=== PATIENT | male | born 1955 | race Caucasian/White ===

== ENCOUNTER 2024-10-10 02:55 | Inpatient (IN) | payer OTHER, SELFPAY ==
[2024-10-10] VITALS (23 sets, daily range): BP systolic 89–178; BP diastolic 58–97; BMI 26.2
--- NOTE | 2024-10-10 00:27 | ED.GENMED ---
History of Present Illness
General
Chief Complaint: Chest Pain
Source: patient and ambulance crew
Exam Limitations: none
Time Seen by Provider: 10/10/24 00:27
Nursing documentation reviewed up to this point in time: agreed with
History of Present Illness
History of Present Illness:
69-year-old male presents with substernal chest pain that radiates into his left jaw and his back. He states that the pain began approximate 1 hour prior to arrival while watching the fourth water of a football game. Patient denies any cardiac
history. His only medical problem is hypertension. He does take olmesartan. He states that he has seen cardiology in the past as 'preventative measures '. He does not smoke. He drinks approximately 3-4 beers per week. Denies any drug use. Is
but his ex- is his contact. He lives alone.
STEMI alert called at 11:59 PM.
Review of Systems
Review of Systems
Allergies reviewed?: Yes
Other source history: ambulance crew
All Other Systems: ROS reviewed and negative except as documented in HPI and ROS
Constitutional: Reports no symptoms
EENT: Reports no symptoms
Respiratory: Reports no symptoms
Cardiac: Reports chest pain and diaphoresis
ABD/GI: Reports no symptoms
: Reports no symptoms
Musculoskeletal: Reports no symptoms
Skin: Reports no symptoms
Neurological: Reports no symptoms
Endocrine: Reports no symptoms
Hematologic/Lymphatic: Reports no symptoms
Psychiatric: Reports no symptoms
Phy Exam
General Physical Exam
General Presentation: moderate distress
General Skin: warm and diaphoretic
General Habitus: normal
General Mental: alert
General Hydration: appears well hydrated
ENT Exam
ENT Exam: EOMI, pharynx normal, neck supple and normocephalic
Eye Exam
Eye Exam: PERRL, cornea clear and conjunctiva normal
Cardiovascular Exam
Cardiovascular Exam: regular rate/rhythm, no edema, no murmur and normal peripheral pulses
Pulmonary Exam
Pulmonary Exam: lungs clear, no respiratory distress, no rales, no crackles, no rhonchi, no stridor, no wheezing and no cough
Gastrointestinal Exam
Gastrointestinal Exam: normal bowel sounds, non tender, soft, no organomegaly, no pulsatile mass and non distended
Neurological Exam
Neurological Exam: alert, oriented x3, no motor deficits and speech normal
Musculoskeletal Exam
Musculoskeletal Exam: full ROM and no edema
Skin Exam
Skin Exam: normal color, warm/dry, no rash and no petechia
Psychiatric Exam
Psychiatric Exam: normal mood/affect
Scores
Heart Score for Chest Pain Patients
STEMI patient?: Yes
Course
Orders/Labs/Results
Orders:
Orders
10/10/24 00:15
Electrocardiogram (*1) Urgent
Reason for Study: Other
Other Reason for Exam: Respiratory Distress
Cardiac Monitoring- Treatment ONCE
EKG- Treatment ONCE
IV Insert/Care/Rem.- Treatment PRN
CR Chest Portable - 1 View Urgent
Comment:
Reason For Exam: respiratory distress
Reason Study Needs to be Portable: Patient Unstable
O2 Therapy [RESP] Urgent
Titrate/Wean O2 to maintain O2 sat greater than (%): 93
Special Instructions: TO MAINTAIN CONTINUOUS O2 SATS >/= 93%
Pulse Ox/cont/shift [RESP] Urgent
Quantity: 1
Special Instructions: continuous pulse ox
10/10/24 00:20
Complete Blood Count/With Diff Urgent
Comprehensive Metabolic Panel Urgent
NT-proBNP Urgent
Troponin I Urgent
10/10/24 00:33
PTT Urgent
Abnormal Lab Results
10/10/24
00:20
MCH 31.8 H pg
(27.0-31.0)
Abs Immat Gran (auto) 0.1 H 10^3/uL
(0-0.05)
Absolute Monos (auto) 0.8 H 10^3/uL
(0.1-0.6)
Immature Gran % 1.3 H %
(0-0.5)
Monocytes % 9.9 H %
(1.7-9.3)
Eosinophils % 8.7 H %
(0-6)
BUN 21 H mg/dl
(9-20)
Glucose 166 H mg/dl
(70-99)
10/10/24 00:20
10/10/24 00:20
*Critical Care Note
Total Time (30-74mins, 75-104mins- exclusive of procedures): 20
comment:
Critical care statement: A total of 20 minutes of critical care time was provided for this patient. This time is separate from time utilized to perform the aforementioned documented procedures. Aggregate critical care time includes only time
during which I was engaged in work directly related to the patient's care, as described above, whether at the bedside or elsewhere in the Emergency Department.
ED Attending Note
-
Portions of this chart may have been created with voice recognition software.� Occasional wrong word or��sound alike� substitutions may have occurred due to the inherent limitations of voice recognition software.
Discharge Plan
Departure
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
Date of Disposition: 10/10/24
Time of Disposition: 00:28
Admit to: slab off mill tender
Presentation/result/management discussed w/ accepting MD/DO: Dr. Mendosa
Discharge Problem:
ST elevation (STEMI) myocardial infarction, Chest pain
Discharge Date and Time
Print Language: FRENCH
[2024-10-10 00:34] LABS: % Basophils 1.1 % (0-2); % Eosinophils 8.7 % (0-6); % Immature Granulocytes 1.3 % (0-0.5); % Lymphocytes 24.4 % (20.5-51.1); % Monocytes 9.9 % (1.7-9.3); % Neutrophils 54.6 % (42.2-75.2); Absolute Basophils 0.1 10^3/uL (0-0.2); Absolute Eosinophils 0.7 10^3/uL (0-0.7); Absolute Immature Granulocytes 0.1 10^3/uL (0-0.05); Absolute Lymphocytes 1.8 10^3/uL (1.2-3.4); Absolute Monocytes 0.8 10^3/uL (0.1-0.6); Absolute Neutrophils 4.1 10^3/uL (1.4-6.5); Hematocrit 47.1 % (39.0-52.0); Hemoglobin 16.2 g/dL (13.0-18.0); Mean Corp Hgb Conc. 34.4 g/dL (33.0-37.0); Mean Corpuscular Hgb 31.8 pg (27.0-31.0); Mean Corpuscular Volume 92.4 fL (80.0-94.0); Mean Platelet Volume 10.4 fL (7.4-10.4); Nucleated Red Blood Cells % 0 % (-); Platelet Count 172 10^3/uL (130-400); Red Cell Dist. Width 12.3 % (11.5-14.5); White Blood Cell Count 7.6 10^3/uL (4.8-10.8)
[2024-10-10 00:44] LABS: ALT (SGPT) 22 U/L (0-50); AST (SGOT) 23 U/L (17-59); Alkaline Phosphatase 64 U/L (38-126); Blood Urea Nitrogen 21 mg/dl (9-20); Calcium 9.1 mg/dl (8.4-10.2); Carbon Dioxide 25 mmol/L (22-30); Chloride 107 mmol/L (98-107); Estimated Creatinine Clearance 80 ml/min; Glucose 166 mg/dl (70-99); Sodium 143 mmol/L (135-145); Total Bilirubin 0.3 mg/dl (0.2-1.3); Total Protein 6.5 g/dl (6.3-8.2); eGFR > 60.00
[2024-10-10 00:51] LABS: APTT 25.2 Sec (23.4-35.0)
[2024-10-10 00:52] LABS: ACT-LR - POC 187 Seconds (116-155)
[2024-10-10 00:54] LABS: NT-proBNP 29.4 pg/ml; Troponin I < 0.012 ng/ml
[2024-10-10 01:03] LABS: ACT-LR - POC 253 Seconds (116-155)
[2024-10-10 01:14] LABS: ACT-LR - POC 253 Seconds (116-155)
[2024-10-10 01:25] LABS: ACT-LR - POC 347 Seconds (116-155)
[2024-10-10 01:47] LABS: ACT-LR - POC 316 Seconds (116-155)
[2024-10-10 02:44] LABS: ACT-LR - POC 274 Seconds (116-155)
--- NOTE | 2024-10-10 02:53 | ITS.CL.CATH ---
Stenocaptioner - Catheterization
Cardiac Catheterization
Procedure Report:
LEFT HEART CATH AND CORONARY INTERVENTION
Date of Procedure: October 10, 2024
Referring: [facility] Emergency Department
PROCEDURES:
1. Left heart catheterization with coronary and single-plane left ventriculography
2. Successful stenting of the mid right coronary artery with a 4.5 x 15 mm Spearman stent that was implanted at 14 allyssa and postdilated to 16 allyssa with a 5.5 mm Trek NC balloon
3. Successful stenting of the distal RCA into the PDA with a 2.75 x 30 mm Spearman stent that was postdilated with a 3.5 mm noncompliant balloon at 6 allyssa distally 8 and 12 allyssa within the midportion of the stent and 20 and 22 allyssa in the proximal portion
of the stent
4. Balloon angioplasty of posterolateral branch with a 2.25 x 10 mm balloon
INDICATION: This is a 69-year-old gentleman with no prior cardiac history who reported the sudden onset of substernal chest pressure approximately 1-2 hours prior to presentation. His symptoms worsened and 911 was called. His prehospital
electrocardiogram was suggestive of a possible evolving inferior wall myocardial infarction and a STEMI alert was activated. Upon arrival to [facility] repeat ECG was diagnostic for an acute inferior wall myocardial infarction and he was
referred for emergent coronary angiography.
ACCESS: Right radial artery, 6 Korean sheath
HEMODYNAMICS (mmHg):
AO (s/d, m) : 150/91, 116
LV (s/d) : 157/15
LVEDP : 26
CORONARY FINDINGS
Dominance: Right
LEFT MAIN: 40% ostial stenosis
LEFT ANTERIOR DESCENDING: The LAD arises normally from the left main and runs in the anterior interventricular groove. The first diagonal branch arises from the proximal one third of the LAD and has a 70% proximal stenosis. There is a complex
bifurcation mid LAD stenosis involving a medium caliber second diagonal branch. The mid to distal LAD beyond the second diagonal branch has diffuse luminal irregularities but no high-grade focal obstructive stenosis
CIRCUMFLEX: The circumflex is a medium caliber nondominant vessel giving rise to a small OM1. The mid circumflex has a 40% stenosis. OM 2 has a long 60-70% proximal stenosis
RIGHT CORONARY: The right coronary artery is a large-caliber artery with an 80% stenosis in a very ectatic segment of the mid RCA. The PDA is patent. The posterolateral branches fill to fill via [id number] collaterals. The origin was not
well-visualized.
VENTRICULOGRAPHY: Left ventriculography was performed in an IRVING projection. The digital single-plane left ventricular ejection fraction is estimated at 45-50% with posterior basal and diaphragmatic inferior hypokinesis noted
ANGIOPLASTY PROCEDURE DETAIL: Upon review of the diagnostic catheterization films the decision was made to proceed with percutaneous revascularization of the mid and possibly distal RCA. Intravenous heparin was administered and the ACT was
monitored throughout the procedure. The origin of the RCA was cannulated with a 6 Korean hockey-stick guide catheter and a long BMW guidewire was advanced across the stenosis in the mid RCA and into the PDA with a mild degree of difficulty. I
initially attempted to primarily stent the RCA using a 4.5 x 15 mm Angel stent. However, the Angel stent would not cross and was removed from the vessel. Predilation was then performed using a 3.0 x 15 mm Euphora balloon. Predilation allowed for
placement of the 4.5 x 15 mm Angel stent which was implanted at nominal pressures then postdilated with a 5.5 mm noncompliant balloon. After post dilating the stent the patient experienced a significant increase in chest discomfort with associated
ECG changes, bradycardia and nausea. He became agitated and was unsure if he could remain still for the remainder of the procedure. Intravenous fluids were administered and 0.5 mg of atropine was given. Phenylephrine was utilized to treat
hypotension and he was transiently started on an norepinephrine infusion.
Angiography revealed no reflow into the distal RCA. A posterolateral branch was now noted to be occluded proximally. A GuideLiner was advanced into the proximal RCA and a 2.75 x 30 mm Angel stent was positioned from the distal RCA to the mid PDA
where it was implanted at nominal pressures. The stent was postdilated with a 3.5 mm noncompliant balloon. The posterolateral branch was now noted to fill and the guide liner was removed. A second BMW guidewire was advanced across the proximal
stenotic segment through the stent strut, however, balloon catheters would not cross. I remove the wire from the posterolateral branch and reposition/recrossed the stent on multiple occasions. Ultimately, we are able to dilate the proximal segment
with a 2.0 x [address] balloon. The ST elevation on the electrocardiogram had largely resolved and the patient was chest pain-free. Given the advanced nature of his coronary disease in the LAD, diagonal, and circumflex system the decision was
made to terminate further interventional attempts on the posterolateral branch.
Double bolus Integrilin was administered following stenting of the mid LAD and development of transient no reflow. Ultimately, the Integrilin bolus was followed by continuous infusion. This was a very long complex interventional procedure
exceeding 3000 mGy and required multiple wires, stents, balloon dilation catheters
RADIATION SUMMARY: Fluoro Time (min): 35.5, Dose (mGy): 3360, DAP (Gy.cm2) : 229
CONCLUSIONS
1. Successful stenting of the mid and distal RCA. The mid RCA was stented with a 4.5 x 15 mm Angel stent that was postdilated with a 5.5 mm noncompliant balloon. The distal RCA from the crux to the PDA was stented with a 2.75 x 30 mm Spearman stent
which was postdilated between 6 and 8 allyssa distally with a 3.5 mm noncompliant balloon and successfully higher pressures in the mid and proximal portion of the stent. The proximal stented segment was postdilated between 20 and 22 allyssa.
2. Balloon angioplasty of large posterolateral branch with a 2.0 x 10 mm balloon
RECOMMENDATIONS
1. Angiograms will be reviewed with CT surgery to consider surgical revascularization of LAD, first and second diagonal branches, OM 2, and posterolateral branch from the RCA
2. Continue Integrilin infusion until this bag is completed
3. Aspirin 81 mg daily and ticagrelor 90 mg twice daily
4. High intensity statin therapy
5. Continue to trend serial troponin. Will check hemoglobin A1c and fasting lipids
6. Check echocardiogram
Copy to: Dr. Nico Mendosa
--- NOTE | 2024-10-10 04:12 | PTCARENOTE ---
Pt rec'd from ccl in bed awake,alert with no c/o pain. right radial band in place. fingers cool and dusky with weak pulse. warm blanket applied with hand pinking up after a few mins. adm hx taken and recorded. IV Integrilin infusing via lac.
[2024-10-10 06:46] LABS: HDL Cholesterol 38 mg/dl; LDL Cholesterol, Calculated 129 mg/dl; Total Cholesterol 182 mg/dl (50-199); Triglyceride 79 mg/dl (10-149); Very Low Density Lipoprotein 15 mg/dl (0-30)
[2024-10-10 09:00] LABS: Hepatitis C Antibody Negative (Negative)
[2024-10-10 09:35] LABS: ACT-LR - POC > 397 Seconds (116-155)
--- NOTE | 2024-10-10 09:42 | CONSULT.CT ---
Consultation
-
Date/Time Consultation Requested: 10/10/24
Date/Time Consultation Performed: 10/10/24 0945
Requesting Provider: Dr. Nico Mendosa MD.
Performing Provider: Balbina Oden PA-C on behalf of Dr. Jovani Carroll MD.
Reason for Consultation: IW STEMI, s/p HELIO of RCA, MV CAD eval for CABG
Patient History
Physicians
Family Physician: Dr. Gudelia Hoyos DO
Outpatient Finishing Lab Technician: Jame Perez MD. [facility]
Inpatient Finishing Lab Technician: KOBY, Dr. Nico Mendosa MD.
History of Present Illness
Patient is an extremely pleasant 69-year-old male with PMH of HTN and YONG s/p repair of deviated septum, who was experiencing acute substernal chest pain on 10/10/24.
Patient described an episode of chest pain, radiation to the left jaw and back with associated diaphoresis, nausea, and vomiting. Patient lives alone, and due to the progression of symptoms he sought medical attention and called EMS.
Patient was taken to [facility]'s emergency department on the date described above. EKG upon arrival revealed acute WA/STEMI. SR 1 AVB (66), incomplete RBBB/LAFB. Further workup revealed troponin I of 30.10 and the patient was ruled in for
a STEMI. Cardiology was notified and the patient was taken urgently to the cardiac catheterization lab and underwent a successful stenting of the mid to distal RCA with HELIO.
Patient was also found to have multivessel CAD. Please see summary of catheterization listed below. CT surgery was consulted for coronary artery revascularization.
Cardiac catheterization 10/10/24: Navya
EF: 45-50%
LM: 40% ostial
LAD: complex mid LAD stenosis
D1: 70% prox
LCx: 40 % mid
OM2: 60-70% prox
RCA: 80% mid. PDA is patent. PLB's fill via L -> R collaterals
Interventions: Successful stenting of mid-distal RCA
EK/15
Acute WA/STEMI
SR 1AVB (66)
Incomplete RBBB/LAFB
Past Medical History
Past Medical History: Other
HTN
YONG s/p repair of deviated septum
Past Surgical History
Past Surgical History: Other
ORIF L clavicle
L hand surgery
R carpal tunnel release
L knee cyst removal
Deviated septum repair
Dental History
Noncontributory
Family History
Mother: Still Living (93, h/o PPM )
Father: at Age (54) and Cause of (History of CAD, complications with lung cancer)
Family Medical History: CAD
Social History
Alcohol: Occasional (2-7 drinks/wk )
Drug: None
Tobacco: Non-Smoker
Personal:
Living: Alone
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
Allergies
Allergy/AdvReac Type Severity Reaction Status Date / Time
No Known Allergies Allergy Verified 10/10/24 03:29
Review of Systems
-
History Source: Patient
General: Reports Fatigue; Denies Fever, Weight Gain, Weight Loss or Night Sweats
HEENT: Denies Visual Changes, Dysphagia, Hoarseness or Sore Throat
Respiratory: Reports Other (h/o YONG ); Denies SOB, ALICEA, Cough or Asthma
Cardiac: Reports Chest Pain, Nausea, Vomiting and Diaphoresis; Denies Edema
Abdomen/GI: Reports Nausea and Vomiting; Denies Abdominal Pain, Reflux, Indigestion, BRBPR or Black Stools
: Denies Dysuria, Frequency, Incontinence, Urgency or Hematuria
Musculoskeletal: Denies Myalgias, Arthralgias, Joint Pain or Edema
Skin: Denies Itching or Rash
Neurological: Denies CVA, TIA, Headaches, Syncope, Numbness or Seizures
Vascular: Denies Claudication or PVD
Physical Exam
Vital Signs
Temp 98.5 F 10/10/24 07:47
Temp route: Oral 10/10/24 07:47
Pulse 68 10/10/24 09:15
Rhythm: Normal sinus rhythm 10/10/24 03:30
With- Bundle Branch Block Confi 10/10/24 03:30
Resp Rate 20 10/10/24 07:47
Blood pressure 101/71 10/10/24 09:00
Blood pressure extremity used: Right upper arm 10/10/24 07:47
Position: Lying 10/10/24 07:47
MAP (cuff-Jose Monitor) 82 10/10/24 09:00
SaO2 94 10/10/24 07:47
Oxygen Mode of Delivery Room air 10/10/24 07:47
Can the patient verbally communicate their pain? Yes 10/10/24 03:08
Pain scale ratin 10/10/24 03:08
Actual Weight 177 lb 0.499 oz 10/10/24 00:22
Body Mass Index (BMI) 0.0 10/10/24 03:34
Labs
10/10/24 00:20
APTT 25.2 Sec (23.4-35.0) 10/10/24 00:33
Troponin I Cancelled 10/10/24 15:00
Yzj-W-Ggrfzdprdfs Pept 29.4 pg/ml 10/10/24 00:20
Diagnostic Studies
Cardiac catheterization 10/10/24: Navya
EF: 45-50%
LM: 40% ostial
LAD: complex mid LAD stenosis
D1: 70% prox
LCx: 40 % mid
OM2: 60-70% prox
RCA: 80% mid. PDA is patent. PLB's fill via L -> R collaterals
Interventions: Successful stenting of mid-distal RCA
EK/15
Acute WA/STEMI
SR 1AVB (66)
Incomplete RBBB/LAFB
Exam
General: Well Developed, Well Nourished, No Apparent Distress and Comfortable; Negative Respiratory Distress
HEENT: Normocephalic, Moist Mucous Membranes, Atraumatic, PERRLA and EOMI
Neck: Trachea Midline; Negative Carotid Bruit
Respiratory: Clear; Negative Wheezes, Crackles, Rhonchi or Accessory Muscle Use
Cardiac: S1/S2 and Regular Rhythm; Negative Murmur, Rub or Gallop
GI: Soft, Non Tender, Non Distended and Normal Bowel Sounds (Slightly diminished)
Rectal: Deferred by Provider
Skin: Warm and Dry; Negative Rash
Neuro: AO x 3, No Motor Deficits and CN X-XII Intact
Extremities: Negative Upper Level Edema, Lower Level Edema, Upper Level Cyanosis, Lower Level Cyanosis, Upper Level Clubbing or Lower Level Clubbing
Psych: Calm
Assessment / Plan
-
Assessment:
69-year-old male with PMH of:
HTN
YONG s/p repair of deviated septum
Now with:
Acute WA/STEMI
s/p successful stenting of RCA w/ HELIO
LVEF 45-50%
MV CAD
Plan:
Patient's case was discussed with Dr. Jovani Carroll MD.
Patient will follow-up in the office as an outpatient with Dr. Carroll for consultation.
At that point surgical date will be determined. Patient was given an appointment for 10/28/2024 at 8:30 AM.
We will obtain preoperative testing prior to the patient being discharged.
It was requested to evaluate his left radial artery with complete palmar arch ultrasound.
Patient will likely require Brilinta washout prior to surgical date.
--- NOTE | 2024-10-10 09:53 | W.PN.CARDCBS ---
Addendum entered and electronically signed by Rafael Amaya MD 10/10/24 11:13:
I saw and examined the patient.
The CARPENTER APPRENTICE or PA's note was reviewed and I agree with the note.
Comment: General: Well developed, well nourished in NAD.
Neck: Supple, no JVD, HJR, carotids +2 B/L, no bruits bilaterally.
Heart: Non displaced PMI, RRR, no murmurs, No S3, S4, no rubs.
Lungs: scattered rhonchi
Abdomen: Normal bowel sounds, soft, non-tender, non-distended.
Extremities: No clubbing, cyanosis or edema bilaterally.
Neuro: Grossly nonfocal, awake, alert and oriented x3.
Doing well at current time. Will check echocardiogram. Await CT surgery input. Likely eventual outpatient CABG. Will trend troponins.
Original Note:
Today's Communication / Plan
-
CT surgical work up underway
integrilin stopped
continue asa, brilinta, lipitor
low dose toprol with hold parameters
echo pending
trend trop
Impression / Plan
-
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
Assessment:
Presentation with chest discomfort
STEMI resulting in RCA PCI x2 and balloon angioplasty of large PLB 10/10/24
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
HTN
HLD
ECHO 10/10/24: pending
Plan:
-Patient presented with chest discomfort. EKG consistent with inferior STEMI resulting in urgent catheterization with RCA PCI x 2 and balloon angioplasty of large posterior lateral branch 10/10/2024. He was noted by cath to have residual
multivessel CAD
-CT surgery following. CABG work up underway
-Troponin this morning up to 30, trend to peak
-Chest pain-free
-Sinus rhythm on telemetry with several brief runs of NSVT
-K/mag pending
-Blood pressures have been marginal. Will add low-dose Toprol with hold parameters
-Integrilin now stopped
-Continue aspirin, Brilinta. Case management looking into cost to patient
-LDL 127. Lipitor 80 mg every afternoon new this admission
-Echo pending
-LVEDP by cath was 26. monitor volume status
-Cardiac rehab
-Ambulate
-Right wrist site clean dry and intact
-For possible discharge to home in a.m.
-Will arrange outpatient cardiac follow-up
Progress Note - Calender Roll Operator
Subjective
Date of Service: October 10, 2024
Denies chest pain, shortness of breath, palpitations overnight
Objective
Labs:
10/10/24 00:20
Labs
Hgb 16.2 g/dL (13.0-18.0) 10/10/24 00:20
Hct 47.1 % (39.0-52.0) 10/10/24 00:20
Plt Count 172 10^3/uL (130-400) 10/10/24 00:20
APTT 25.2 Sec (23.4-35.0) 10/10/24 00:33
Sodium 143 mmol/L (135-145) 10/10/24 00:20
Potassium 4.0 mmol/L (3.5-5.1) 10/10/24 00:20
BUN 21 mg/dl (9-20) H 10/10/24 00:20
Creatinine 0.9 mg/dL (0.7-1.3) 10/10/24 00:20
Glucose 166 mg/dl (70-99) H 10/10/24 00:20
Troponins
10/10/24 10/10/24 10/10/24
00:20 03:00 06:07
Troponin I < 0.012 Cancelled 30.100 H* D
10/10/24 10/10/24
09:00 15:00
Troponin I Cancelled Cancelled
Vital Signs and I&O:
Vital Signs
Temp Pulse Resp BP Pulse Ox
98.5 F 68 20 101/71 94
10/10/24 07:47 10/10/24 09:15 10/10/24 07:47 10/10/24 09:00 10/10/24 07:47
Vital Signs
Temp Pulse Resp BP Pulse Ox
98.5 F 68 20 10171 94
10/10/24 07:47 10/10/24 09:15 10/10/24 07:47 10/10/24 09:00 10/10/24 07:47
Intake & Output
10/08/24 10/09/24 10/10/24 10/11/24
07:59 07:59 07:59 07:59
Intake Total 52 / 52
Output Total 250 / 250
Balance -198 / -198
Physical Exam
Physical Exam
GEN: No distress, awake, alert, oriented x3
HEENT: supple, anicteric, mmm, eomi
LUNGS: CTA B/L, no wheezes/rales
CV: Reg, S1/S2, no murmur
ABD: soft, BS+, NT/ND
EXT: No cyanosis, clubbing, edema
NEURO: Gross non-focal
SKIN: Warm, pink, dry. No rash. R wrist site c/d/i
[2024-10-10] MEDS: PROTONIX 40 MG PO (10:04)
[2024-10-10] MEDS: BRILINTA 90 MG PO ×2 (10:05→19:44)
[2024-10-10] MEDS: LOW STRENGTH ASPIRIN 81 MG PO (10:05)
[2024-10-10 10:07] LABS: Glycohemoglobin (HgbA1c) 5.5 % (4.0-5.6)
--- NOTE | 2024-10-10 11:00 | PTCARENOTE ---
pt continues to be sr on the monitor, hr in the 70, vss. pt offers no complaints at this time. right radial band off, cdi. pt educated on restrictions and pt verbalized understanding. pt also educated on plan of care w/ testing and verbalized
understanding. pt ambulating in room and tolerating well. call leonard within reach.
[2024-10-10 12:38] LABS: INR 0.96; PT 13.1 Sec (11.4-14.6)
[2024-10-10 12:43] LABS: Blood Urea Nitrogen 18 mg/dl (9-20); Calcium 9.4 mg/dl (8.4-10.2); Carbon Dioxide 28 mmol/L (22-30); Chloride 105 mmol/L (98-107); Estimated Creatinine Clearance 72 ml/min; Glucose 100 mg/dl (70-99); Magnesium 2.1 mg/dl (1.6-2.3); Potassium 4.8 mmol/L (3.5-5.1); Sodium 139 mmol/L (135-145); eGFR > 60.00
[2024-10-10] MEDS: TOPROL XL PO (15:00)
--- NOTE | 2024-10-10 15:00 | PTCARENOTE ---
notified ranjit Altamirano of pt being in sb and bp of 101/71, help metoprolol per order.
--- NOTE | 2024-10-10 15:13 | CM ---
Chart reviewed. Patient is independent of ADLS, lives alone his children visit 50% of the time, 2 STH, 1 MARIAM, 0 DME. Plan is for the patient to return home. CM to follow
--- NOTE | 2024-10-10 15:18 | CM ---
Pricing on Brilinta 90mg BID is covered through the patients [employer] [facility], [place] [id number], at $11.10. They do have it in stock at his [facility]
[2024-10-10] MEDS: LIPITOR 80 MG PO (17:46)
[2024-10-10] MEDS: LOVENOX 40 MG SC (17:46)
[2024-10-10] MEDS: FLUSH (NSS) 1 FLUSH IV (19:45)
--- NOTE | 2024-10-10 22:16 | PTCARENOTE ---
Received patient at change of shift. Patient awake, alert, and oriented sitting in bed. Right radial site clean, dry, and intact. Little ecchymosis, no hematoma or swelling. No c/o pain. BP 105/73, Sinus/Roddy w/ BBB 50s-60s, 96% on room air.
Discussed plan of care. Patient verbalized understanding. Call leonard within reach.
[2024-10-11 05:03] VITALS: BP 96/72
[2024-10-11 05:48] LABS: Hematocrit 43.9 % (39.0-52.0); Mean Corp Hgb Conc. 34.2 g/dL (33.0-37.0); Mean Corpuscular Hgb 31.4 pg (27.0-31.0); Mean Platelet Volume 10.5 fL (7.4-10.4); Platelet Count 150 10^3/uL (130-400); Red Blood Cell Count 4.77 10^6/uL (4.70-6.10); Red Cell Dist. Width 12.6 % (11.5-14.5); White Blood Cell Count 7.5 10^3/uL (4.8-10.8)
[2024-10-11 06:02] LABS: Blood Urea Nitrogen 21 mg/dl (9-20); Carbon Dioxide 23 mmol/L (22-30); Chloride 107 mmol/L (98-107); Estimated Creatinine Clearance 72 ml/min; Glucose 102 mg/dl (70-99); Potassium 3.9 mmol/L (3.5-5.1); Sodium 138 mmol/L (135-145); eGFR > 60.00
--- NOTE | 2024-10-11 07:31 | W.PN.CARDCBS ---
Addendum entered and electronically signed by Elaine Murica PA-C 10/11/24 10:26:
[id number]
Addendum entered and electronically signed by Rafael Amaya MD 10/11/24 09:52:
I saw and examined the patient.
The SNELLER HAND or PA's note was reviewed and I agree with the note.
Comment: General: Well developed, well nourished in NAD.
Neck: Supple, no JVD, HJR, carotids +2 B/L, no bruits bilaterally.
Heart: Non displaced PMI, RRR, no murmurs, No S3, S4, no rubs.
Lungs: Clear to auscultation bilaterally, no wheeze, rhonchi, rubs bilaterally,
normal expiratory phase.
Extremities: No clubbing, cyanosis or edema bilaterally.
Neuro: Grossly nonfocal, awake, alert and oriented x3.
Stable cardiology status for discharge. Outpatient CT surgery evaluation has been scheduled. Continue aspirin and Brilinta.
Original Note:
Today's Communication / Plan
-
feeling well overnight
continue asa, brilinta, PPI, lipitor
attempt to continue toprol 12.5mg daily
CT surgical studies completed
likely for DC to home later today
OP cardiac and CT surgical follow up
Impression / Plan
-
Primary Piping Designer: none
Assessment:
Presentation with chest discomfort
STEMI resulting in RCA PCI x2 and balloon angioplasty of large PLB 10/10/24
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
HTN
HLD
ECHO 10/10/24: EF 60-65%, mild cLVH, mild AI
Plan:
-Patient presented with chest discomfort. EKG consistent with inferior STEMI resulting in urgent catheterization with RCA PCI x 2 and balloon angioplasty of large posterior lateral branch 10/10/2024. He was noted by cath to have residual
multivessel CAD
-remains CP free overnight
-CT surgery work up noted
-trop peaked at 44
-in SR on review of tele overnight with several brief runs of NSVT, appears to be improving in last 24 hours
-will attempt toprol 12.5mg daily
-Continue aspirin, Brilinta.
-LDL 127. Lipitor 80 mg every afternoon new this admission
-Echo with results as above, reviewed with patient 10/11
-LVEDP by cath was 26. monitor volume status, no evidence of acute CHF
-Cardiac rehab
-Right wrist site clean dry and intact
-likely for DC to home later today
-cardiac rehab
-outpatient cardiac and CT surgery follow-up arranged
-total DC time >30 minutes
Progress Note - Piping Designer
Subjective
Date of Service: October 11, 2024
no CP, SOB, palpitations, dizziness overnight
Objective
Labs:
10/11/24 05:09
10/11/24 05:09
Labs
Hgb 15.0 g/dL (13.0-18.0) 10/11/24 05:09
Hct 43.9 % (39.0-52.0) 10/11/24 05:09
Plt Count 150 10^3/uL (130-400) 10/11/24 05:09
PT 13.1 Sec (11.4-14.6) 10/10/24 12:18
INR 0.96 10/10/24 12:18
APTT 25.2 Sec (23.4-35.0) 10/10/24 00:33
Sodium 138 mmol/L (135-145) 10/11/24 05:09
Potassium 3.9 mmol/L (3.5-5.1) 10/11/24 05:09
BUN 21 mg/dl (9-20) H 10/11/24 05:09
Creatinine 1.0 mg/dL (0.7-1.3) 10/11/24 05:09
Glucose 102 mg/dl (70-99) H 10/11/24 05:09
Troponins
10/10/24 10/10/24 10/10/24
00:20 03:00 06:07
Troponin I < 0.012 Cancelled 30.100 H* D
10/10/24 10/10/24 10/10/24
09:00 12:18 15:00
Troponin I Cancelled 44.300 H* D Cancelled
10/10/24
17:39
Troponin I 29.800 H* D
Vital Signs and I&O:
Vital Signs
Temp Pulse Resp BP Pulse Ox
98.1 F 71 16 9672 96
10/11/24 05:15 10/11/24 05:03 10/11/24 05:15 10/11/24 05:03 10/11/24 05:15
Vital Signs
Temp Pulse Resp BP Pulse Ox
98.1 F 71 16 96
10/11/24 05:15 10/11/24 05:03 10/11/24 05:15 10/11/24 05:03 10/11/24 05:15
Intake & Output
10/08/24 10/09/24 10/10/24 10/11/24
07:59 07:59 07:59 07:59
Intake Total 532 / 532
Output Total 450 / 450
Balance 82 / 82
Physical Exam
Physical Exam
GEN: No distress, awake, alert, oriented x3
HEENT: supple, anicteric, mmm, eomi
LUNGS: CTA B/L, no wheezes/rales
CV: Reg, S1/S2, no murmur
ABD: soft, BS+, NT/ND
EXT: No cyanosis, clubbing, edema
NEURO: Gross non-focal
SKIN: Warm, pink, dry. No rash. R wrist site c/d/i
--- NOTE | 2024-10-11 08:19 | W.DS.TRANS ---
DC Summary - Compliance Officer
-
Discharge Instructions:
Discharge Diagnosis/Procedures STEMI, Angioplasty with stent to RCA, residual
coronary disease
Diet Low Cholesterol
Activity No strenuous activity
Driving Restrictions No driving for 24 hours
Bathing Restrictions OK to Shower
Other Services Cardiac Rehab
Instructions:
Stand-Alone Forms: DC Instructions- Cath/EP Lab
Changes to Home Medications: Yes
Discharge Medications:
DC Medications w/original date entered in [facility]
aspirin 81 mg chewable tablet 81 mg PO DAILY #30 tabs 10/10/24
atorvastatin 80 mg tablet 80 mg PO QPM #30 tabs 10/10/24
coenzyme [id number] 100 mg-100 unit capsule 100 cap PO 1XD 10/10/24
metoprolol succinate 25 mg tablet,extended release 24 hr 12.5 mg (1/2 x 25 mg) PO DAILY #30 tabs 10/10/24
pantoprazole 40 mg tablet,delayed release 40 mg PO DAILY #30 tabs 10/10/24
ticagrelor 90 mg tablet (Brilinta) 90 mg PO BID #60 tabs 10/10/24
Home Medication Changes
losartan stopped
asa, lipitor, brilinta, toprol, protonix are new
Pending Results: No
[2024-10-11 08:22] VITALS: BP 113/83
[2024-10-11] MEDS: LOW STRENGTH ASPIRIN 81 MG PO (08:24)
[2024-10-11] MEDS: TOPROL XL 12.5 MG PO (08:24)
[2024-10-11] MEDS: PROTONIX 40 MG PO (08:24)
[2024-10-11] MEDS: BRILINTA 90 MG PO (08:26)
[2024-10-11 11:05] VITALS: BP 106/73
[2024-10-11] MEDS: FLUAD (65 yr+) 2024-2025 FORMULA 0.5 ML IM (14:49)
== END 2024-10-11 16:20 | disposition home or self-care (01) | DRG 322 ==
LOC: IVU 02:55
PROVIDERS: Physician Assistant; Physician Assistant Medical; ADMITTING PHYSICIAN Internal Medicine Interventional Cardiology; CONSULT PHYSICIAN Thoracic Surgery (Cardiothoracic Vascular Surgery); EMERGENCY PHYSICIAN Student in an Organized Health Care Education/Training Program
PROC: 027035Z Dilation of Coronary Artery, One Artery with Two Drug-eluting Intraluminal Devices, Percutaneous Approach (ICD-10-PCS; 2024-10-10)
PROC: 4A023N7 Measurement of Cardiac Sampling and Pressure, Left Heart, Percutaneous Approach (ICD-10-PCS; 2024-10-10)
PROC: B2111ZZ Fluoroscopy of Multiple Coronary Arteries using Low Osmolar Contrast (ICD-10-PCS; 2024-10-10)
PROC: B2151ZZ Fluoroscopy of Left Heart using Low Osmolar Contrast (ICD-10-PCS; 2024-10-10)
DX: I21.19 ST elevation (STEMI) myocardial infarction involving other coronary artery of inferior wall (principal); I47.20 Ventricular tachycardia, unspecified; I25.10 Atherosclerotic heart disease of native coronary artery without angina pectoris; I10 Essential (primary) hypertension; E78.5 Hyperlipidemia, unspecified; Z79.82 Long term (current) use of aspirin
CPT/HCPCS: 71045; 71250; 80048; 80053; 80061; 83036; 83735; 83880; 84484; 85025; 85027; 85347; 85610; 85730; 86803; 90662; 93005; 93306; 93458; 93880; 93923; 93931; 99285; C1725; C1769; C1874; C1887; C1894; C9601; C9606; G0008; J0153; J1327; Q9967

== ENCOUNTER → 2024-12-04 08:20 | Outpatient (REF) | payer OTHER, SELFPAY ==
[2024-12-04 08:24] VITALS: BMI 26.1
[2024-12-04 09:01] LABS: % Basophils 0.8 % (0-2); % Eosinophils 10.5 % (0-6); % Immature Granulocytes 0.2 % (0-0.5); % Lymphocytes 24.9 % (20.5-51.1); % Monocytes 9.1 % (1.7-9.3); % Neutrophils 54.5 % (42.2-75.2); Absolute Eosinophils 0.5 10^3/uL (0-0.7); Absolute Lymphocytes 1.3 10^3/uL (1.2-3.4); Absolute Monocytes 0.5 10^3/uL (0.1-0.6); Absolute Neutrophils 2.8 10^3/uL (1.4-6.5); Hematocrit 48.7 % (39.0-52.0); Hemoglobin 16.7 g/dL (13.0-18.0); Mean Corp Hgb Conc. 34.3 g/dL (33.0-37.0); Mean Corpuscular Hgb 31.3 pg (27.0-31.0); Mean Corpuscular Volume 91.2 fL (80.0-94.0); Mean Platelet Volume 10.2 fL (7.4-10.4); Nucleated Red Blood Cells % 0 % (-); Platelet Count 180 10^3/uL (130-400); Red Blood Cell Count 5.34 10^6/uL (4.70-6.10); Red Cell Dist. Width 13.1 % (11.5-14.5); White Blood Cell Count 5.1 10^3/uL (4.8-10.8)
[2024-12-04 09:04] LABS: Urine Albumin Negative (Neg - Trace); Urine Bilirubin Negative (Negative); Urine Character Clear (Clear); Urine Color Yellow; Urine Glucose Negative (Negative); Urine Ketone Negative (Negative); Urine Leukocyte Negative (Negative); Urine Nitrite Negative (Negative); Urine Occult Blood Negative (Negative); Urine Urobilinogen Negative (Neg - 1+)
[2024-12-04 09:10] LABS: INR 0.94
[2024-12-04 09:11] LABS: APTT 30.2 Sec (23.4-35.0)
--- NOTE | 2024-12-04 09:53 | CM ---
Met with Mr. Mackey in [facility] He states prior to admission he resides alone in a two story home with one step to enter. He states he has to go up a full flight of steps to get to bedroom/full bathroom. He states he has a powder room on the first
floor. He states prior to admission he was independent with ambulation and adls. He states he does not have any DME in the home. He states he has a prescription plan. He stats his three children stay with him 50 % of the time. ( ages 16,15, and
12) He states he has a good friend he can call if he needed. The discharge plan is to return home with a home visit by the Transitional Care Nurse when medically stable.
We reviewed pre-op and post op routines. We reviewed the shower instructions. He has the soap, written instructions and the Cardiothoracic Surgery Educational Booklet. We reviewed restrictions including sternal precautions and driving
restrictions. We also discussed a home visit by the Transitional Care Nurse. He is agreeable to a home visit. The plan is for CABG on Sunday12/17/24.
[2024-12-04 10:15] LABS: ALT (SGPT) 22 U/L (0-50); AST (SGOT) 28 U/L (17-59); Albumin 4.1 g/dl (3.5-5.0); Alkaline Phosphatase 79 U/L (38-126); Blood Urea Nitrogen 23 mg/dl (9-20); Calcium 8.8 mg/dl (8.4-10.2); Carbon Dioxide 27 mmol/L (22-30); Chloride 101 mmol/L (98-107); Estimated Creatinine Clearance 64 ml/min; Glucose 99 mg/dl (70-99); Potassium 4.3 mmol/L (3.5-5.1); Sodium 137 mmol/L (135-145); Total Bilirubin 1.5 mg/dl (0.2-1.3); Total Protein 6.7 g/dl (6.3-8.2); eGFR > 60.00
[2024-12-04 10:48] LABS: Glycohemoglobin (HgbA1c) 5.4 % (4.0-5.6)
== END ==
LOC: REG 08:20
PROVIDERS: ATTENDING PHYSICIAN Thoracic Surgery (Cardiothoracic Vascular Surgery); FAMILY PHYSICIAN Family Medicine
DX: I25.10 Atherosclerotic heart disease of native coronary artery without angina pectoris (principal); Z01.818 Encounter for other preprocedural examination
CPT/HCPCS: 36415; 80053; 81003; 82248; 83036; 85025; 85610; 85730; 86850; 86900; 86901; 86920; 87070; 93005